=== PATIENT | male | born 1985 | race Caucasian/White ===

== ENCOUNTER 2023-01-18 11:39 | Emergency (ER) | payer MEDICAID ==
[~2023-01-18] VITALS: Ht 160 cm; Wt 77.1 kg
[2023-01-18 11:42] VITALS: BP 139/78; PULSE 94; RESP 18; TEMP 97.8; O2SAT 100
[2023-01-18 11:48] VITALS: O2SAT 100
[2023-01-18] MEDS ORDERED: AMOX-1230 PO (12:27)
[2023-01-18] MEDS ORDERED: IBUP-2213 PO (12:27)
== END 2023-01-18 13:06 | disposition home or self-care (01) ==
LOC: MED 11:39
DX: M54.2 Cervicalgia (principal); Z72.89 Other problems related to lifestyle; Z79.899 Other long term (current) drug therapy
CPT/HCPCS: 99283